=== PATIENT | male | born 1955 | race Caucasian/White ===

== ENCOUNTER 2019-12-06 08:10 | Inpatient (IN) | payer MEDICAID ==
[~2019-12-06] VITALS: Ht 175.3 cm; Wt 82.6 kg
--- NOTE | 2019-12-06 08:17 | NUR ---
THIS IS A 64 YEAR OLD MALE WHO CAME IN BY [facility] FROM [facility] DUE TO WAKING UP AT 0100AM WITH COFFEE GROUND EMESIS, AND RED DIARRHEA. PT WAS GIVEN A UNIT OF RBCS, PROTONIX AND 2 LITERS OF NS. PT PLACED ON WARP SPLITTER SINUS TACHY, CONTINOUS SP02 AND CYCLE VS. PT DENIES ANY PAIN AT THIS TIME
--- NOTE | 2019-12-06 08:18 | NUR ---
dr kong spoke with dr estrada
--- NOTE | 2019-12-06 08:36 | NUR ---
PT STATES HE HAD A BM, NOTIFIED
[2019-12-06 08:47] LABS: BASOPHILS # (AUTO) 0.02 x10^3/uL (0-0.1); BASOPHILS % (AUTO) 0 % (0-1); EOSINOPHILS # (AUTO) 0.01 x10^3/uL (0-0.4); EOSINOPHILS % (AUTO) 0 % (1-7); LYMPHOCYTES # (AUTO) 1.54 x10^3/uL (1-3.4); LYMPHOCYTES % (AUTO) 13 % (22-44); MD NO; MEAN CORPUSCULAR HEMOGLOBIN 32.1 pg (27.5-34.5); MEAN CORPUSCULAR HGB CONC 33.9 g/dL (33.2-36.2); MEAN CORPUSCULAR VOLUME 94.8 fL (81-97); MEAN PLATELET VOLUME 9.6 fL (7.4-10.4); MONOCYTES # (AUTO) 0.46 x10^3/uL (0.2-0.8); MONOCYTES % (AUTO) 4 % (2-9); NEUTROPHILS # (AUTO) 10.12 x10^3/uL (1.8-6.8); NEUTROPHILS % (AUTO) 83 % (42-75); PLATELET COUNT 205 x10^3/uL (130-400); RED CELL DISTRIBUTION WIDTH 13.9 % (9.4-14.8)
--- NOTE | 2019-12-06 08:53 | NUR ---
REPORT TO FADY MICHEL, PLAN OF CARE DISCUSSED.
[2019-12-06 09:01] LABS: ANION GAP 5 mmol/L (5-15); CALCIUM 7.6 mg/dL (8.5-10.1); CHLORIDE 118 mmol/L (98-107); CREATININE 0.74 mg/dL (0.7-1.3)
--- NOTE | 2019-12-06 09:04 | NUR ---
RECEIVED REPORT FROM TAMIA MICHEL. CARE ASSUMED. PT RESTING IN POSITION OF COMFORT. DENIES ANY PAIN AND NEED TO USE RESTROOM. REPORTS "HAVE A BIT OF AN ACID FEELING IN MY STOMACH, MAYBE I CAN GET SOMETHING FOR THAT." TO DISCUSS WITH ERP. CONT PULSE OX, BP, CARDIAC MONITORS IN PLACE. VSS. ST ON MONITOR, RATE 100-110. CALL LIGHT IN REACH. FALL PRECUATIONS IN PLACE. SIDE RAILS UPX2. A&OX4.
--- NOTE | 2019-12-06 09:21 | NUR ---
daughter: shama dillon [phone]
--- NOTE | 2019-12-06 09:23 | NUR ---
DISCUSSED PT REPORT OF "ACID FEELING IN STOMACH" WITH DR. AMADOR, ORDERS RECEIVED TO MEDICATE PER MD/EMAR. GI/MD RESIDENT AT BEDSIDE FOR EVAL.
[2019-12-06] MEDS ORDERED: ONDANSETRON 2MG/ML, 2ML ONE (09:25)
[2019-12-06] MEDS ORDERED: ONDANSETRON 2MG/ML, 2ML IVPush ONE (09:30)
--- NOTE | 2019-12-06 09:44 | NUR ---
PT MEDICATED NOTED PER ORDER FOR NAUSEA AND "ACID FEELING." PT REMAINS NPO PER DR. AMADOR. VSS. RESIDENT GI MD AT BEDSIDE. CALL LIGHT IN REACH. FALL PRECAUTIONS IN PLACE. SIDE RAILS UPX2. RE-POSITIONED FOR COMFORT.
--- NOTE | 2019-12-06 10:06 | NUR ---
PT RESTING COMFORTABLY. DENIES ANY PAIN AND NEED TO RESTROOM. REPORTS NAUSEA IMPROVED AND "ACID FEELING DECREASING." VSS. CALL LIGHT IN REACH. AWAITING ADMIT ORDERS. UPDATED ON POC, AGREES TO POC. FALL PRECAUTIONS IN PLACE
--- NOTE | 2019-12-06 10:15 | NUR ---
ADMITTING PROVIDER DR. NOBLE AT BEDSIDE FOR EVALUATION
[2019-12-06 10:30] LABS: INTERNATIONAL NORMALIZED RATIO 1.01 (0.93-1.1); PROTHROMBIN TIME 10.7 Seconds (9.6-11.5)
[2019-12-06] MEDS ORDERED: hydrALAzine 20 MG/ML, 1ML IVPush PRN (10:30)
[2019-12-06] MEDS ORDERED: ONDANSETRON 2MG/ML, 2ML IVPush PRN (10:30)
--- NOTE | 2019-12-06 10:48 | NUR ---
ANTI-EMBOLISM STOCKING REQUESTED FROM [facility] PER ADMIT MD. DISCUSSED PROTINIX DRIP ORDER AND PROTINIX PT RECEIVED AT ID PRIOR TO ARRIVAL TO ER WITH ADMIT MD DR. NOBLE, AWARE, TO ADMIN PROTINIX ORDERED BY PROVIDER. PROTINIX DRIP REQUESTED FROM PHARMACY.
[2019-12-06] MEDS: PANTOPRAZOLE 80 MG in SODIUM CHLORIDE 0.9% 100 ML IV SCH ×2 (10:53→23:47)
[2019-12-06] MEDS: SODIUM CHLORIDE 0.9% 1,000 ML IV SCH ×2 (10:53→23:48)
[2019-12-06] MEDS ORDERED: FENTANYL PF 100 MCG/2ML ONE (10:53)
[2019-12-06] MEDS ORDERED: MIDAZOLAM 1 MG/ML, 5ML ONE (10:54)
--- NOTE | 2019-12-06 10:57 | NUR ---
GI MD AT BEDSIDE FOR EVALUATION, DISCUSSING POC
--- NOTE | 2019-12-06 11:03 | NUR ---
PROTONIX DRIP INFUSING ON IV PUMP PER ORDER. IVF INFUSING WELL PER EMAR. ENDO TEAM AT BEDSIDE WITH GI MD. VSS. CALL LIGHT IN REACH. DENIES ANY PAIN OR NAUSEA. FALL PRECAUTIONS IN PLACE. PT MEDTELE HOLD AT THIS TIME.
[2019-12-06 11:29] LABS: ALBUMIN 3.2 g/dL (3.4-5.0); BILIRUBIN, DIRECT 0.2 mg/dL (0.1-0.2); BILIRUBIN,INDIRECT 0.4 mg/dL (0.0-2.0); BILIRUBIN,TOTAL 0.6 mg/dL (0.2-1.0); TOTAL PROTEIN 5.6 g/dL (6.4-8.2)
--- NOTE | 2019-12-06 11:42 | NUR ---
RECEIVED BEDSIDE REPORT FROM ENDO RN JAY JAY. PT RESTING IN POSITION OF COMFORT WITH EYES CLOSED. A&OX4. VSS. IVF FLUIDS AND PROTONIX CONT INFUSING PER ORDER ON IV PUMPS. CALL LIGHT IN REACH. AWAITING ROOM ON [facility] FLOOR.
--- NOTE | 2019-12-06 12:25 | NUR ---
PT RESTING COMFORTABLY WITH EYES CLOSED, AROUSES EASILY TO VOICE. VSS. CALL LIGHT IN REACH. FALL PRECAUTIONS IN PLACE. SIDE RAILS UPX2. DENIES ANY PAIN AND NEED TO USE RESTROOM.
--- NOTE | 2019-12-06 13:21 | NUR ---
RESTING IN POSITION OF COMFORT. DENIES ANY PAIN AND NEED TO USE RESTROOM. REMAINS MEDTELE HOLD. VSS. SR ON MONITOR. CALL LIGHT IN REACH. FALL PRECUATIONS IN PLACE. HOSPITAL BED REQUESTED FOR PT FOR COMFORT.
--- NOTE | 2019-12-06 14:06 | NUR ---
[facility] CALLED X2 FOR ANTI-EMBOLISM STOCKINGS, TO SEND. HOSPITAL BED REQUESTED X2. RESTING COMFORTABLY. VSS. DENIES NEED TO USE RESTROOM AND ANY PAIN. CALL LIGHT IN REACH. FALL PRECAUTIONS IN PLACE. CONTINUE AWAITING ROOM ON FLOOR. IVF AND IV PROTONIX CONT INFUSING ON IV PUMPS PER ORDER.
--- NOTE | 2019-12-06 15:36 | NUR ---
[facility] CALLED X3 FOR ANTI-EMBOLISM STOCKING, [employer] AWARE. PT AMBULATED TO RESTROOM WITH STEADY GAIT WITH ASSISTANCE TO VOID, DENIES URGE FOR BM AND ANY DIFFICULTY URINATING. TRANSFERED TO HOSPITAL BED FOR COMFORT. RESTING IN POSITION OF COMFORT. PROVIDED WATER PER DR. AIDE ROMEO, TOLERATING PO WELL. CALL LIGHT IN REACH. FALL PRECAUTIONS IN PLACE. SIDE RAILS UP. A&OX4. VSS. SR ON MONITOR.
--- NOTE | 2019-12-06 15:49 | NUR ---
BEDSIDE REPORT AND TRANSFER OF CARE TO HERBIE RN AT THIS TIME.
--- NOTE | 2019-12-06 21:10 | NUR ---
RN received report and assumed patient care. Patient resting comfortably, has two intravenous fluids running. Sleeping at the moment. Awaiting for medical telemetry bed.
[2019-12-06 22:48] VITALS: BP 115/70
[2019-12-07 02:58] VITALS: BP 109/65
[2019-12-07 05:02] VITALS: BP 107/74
[2019-12-07 06:31] LABS: ALBUMIN 2.8 g/dL (3.4-5.0); ANION GAP 7 mmol/L (5-15); CALCIUM 7.6 mg/dL (8.5-10.1); CHLORIDE 115 mmol/L (98-107)
[2019-12-07 06:35] LABS: ALANINE AMINOTRANSFERASE 18 U/L (12-78); ALKALINE PHOSPHATASE 40 U/L (45-117); BASOPHILS # (AUTO) 0.04 x10^3/uL (0-0.1); BASOPHILS % (AUTO) 1 % (0-1); BILIRUBIN,TOTAL 0.8 mg/dL (0.2-1.0); CREATININE 0.83 mg/dL (0.7-1.3); EOSINOPHILS # (AUTO) 0.15 x10^3/uL (0-0.4); EOSINOPHILS % (AUTO) 3 % (1-7); LYMPHOCYTES # (AUTO) 1.76 x10^3/uL (1-3.4); LYMPHOCYTES % (AUTO) 29 % (22-44); MD NO; MEAN CORPUSCULAR HEMOGLOBIN 32.9 pg (27.5-34.5); MEAN CORPUSCULAR HGB CONC 34.5 g/dL (33.2-36.2); MEAN CORPUSCULAR VOLUME 95.5 fL (81-97); MEAN PLATELET VOLUME 9.6 fL (7.4-10.4); MONOCYTES # (AUTO) 0.33 x10^3/uL (0.2-0.8); MONOCYTES % (AUTO) 6 % (2-9); NEUTROPHILS # (AUTO) 3.77 x10^3/uL (1.8-6.8); NEUTROPHILS % (AUTO) 62 % (42-75); PLATELET COUNT 160 x10^3/uL (130-400); RED BLOOD COUNT 3.23 x10^6/uL (4.38-5.82); RED CELL DISTRIBUTION WIDTH 14.2 % (9.4-14.8)
[2019-12-07 07:08] VITALS: BP 122/73
[2019-12-07] MEDS ORDERED: POTASSIUM PHOSPHATE 44 MEQ in SODIUM CHLORIDE 0.9% 500 ML IV ONE (08:00)
[2019-12-07] MEDS ORDERED: CALCIUM GLUCONATE 4.6 MEQ in SODIUM CHLORIDE 0.9% 100 ML IV ONE (08:00)
[2019-12-07] MEDS ORDERED: MAGNESIUM SULFATE PMX 2GM/50ML 50 ML IV ONE (08:00)
[2019-12-07] MEDS: SODIUM CHLORIDE 0.9% 1,000 ML IV SCH ×2 (09:40→23:15)
[2019-12-07] MEDS: PANTOPRAZOLE 80 MG in SODIUM CHLORIDE 0.9% 100 ML IV SCH ×2 (10:00→18:27)
[2019-12-07 12:56] VITALS: BP 110/70
[2019-12-07] MEDS ORDERED: TETRACYCLINE HCL 250 MG CAPSULE PO SCH (16:00)
[2019-12-07] MEDS ORDERED: TETRACYCLINE HCL 250 MG CAPSULE ONE ×2 (18:23→23:16)
[2019-12-07] MEDS: metroNIDAZOLE 500 MG TABLET PO SCH ×2 (18:27→20:38)
[2019-12-07] MEDS: TETRACYCLINE HCL 250 MG CAPSULE PO SCH ×2 (18:28→23:23)
[2019-12-07 20:28] VITALS: BP 102/63
[2019-12-07] MEDS ORDERED: ARTIFICIAL TEARS 15 DROP/ML BOTTLE EACHEYE PRN (23:30)
[2019-12-08 01:40] VITALS: BP 104/63
[2019-12-08] MEDS ORDERED: TETRACYCLINE HCL 250 MG CAPSULE ONE (04:42)
[2019-12-08] MEDS: PANTOPRAZOLE 80 MG in SODIUM CHLORIDE 0.9% 100 ML IV SCH ×2 (05:15→14:30)
[2019-12-08] MEDS: TETRACYCLINE HCL 250 MG CAPSULE PO SCH ×3 (05:15→16:41)
[2019-12-08 05:59] LABS: BASOPHILS # (AUTO) 0.03 x10^3/uL (0-0.1); BASOPHILS % (AUTO) 1 % (0-1); EOSINOPHILS # (AUTO) 0.23 x10^3/uL (0-0.4); EOSINOPHILS % (AUTO) 4 % (1-7); LYMPHOCYTES # (AUTO) 1.31 x10^3/uL (1-3.4); LYMPHOCYTES % (AUTO) 23 % (22-44); MD NO; MEAN CORPUSCULAR HEMOGLOBIN 32.2 pg (27.5-34.5); MEAN CORPUSCULAR VOLUME 94.7 fL (81-97); MEAN PLATELET VOLUME 9.3 fL (7.4-10.4); MONOCYTES # (AUTO) 0.38 x10^3/uL (0.2-0.8); MONOCYTES % (AUTO) 7 % (2-9); NEUTROPHILS # (AUTO) 3.64 x10^3/uL (1.8-6.8); NEUTROPHILS % (AUTO) 65 % (42-75); PLATELET COUNT 148 x10^3/uL (130-400); RED BLOOD COUNT 3.22 x10^6/uL (4.38-5.82); RED CELL DISTRIBUTION WIDTH 13.8 % (9.4-14.8)
[2019-12-08 06:13] LABS: ANION GAP 6 mmol/L (5-15); CALCIUM 7.7 mg/dL (8.5-10.1); CHLORIDE 116 mmol/L (98-107); CREATININE 0.72 mg/dL (0.7-1.3)
[2019-12-08] MEDS ORDERED: MAGNESIUM SULFATE PMX 2GM/50ML 50 ML IV ONE (07:30)
[2019-12-08 08:11] VITALS: BP 125/77
[2019-12-08] MEDS: metroNIDAZOLE 500 MG TABLET PO SCH ×2 (09:20→16:44)
[2019-12-08] MEDS: SODIUM CHLORIDE 0.9% 1,000 ML IV SCH (09:21)
[2019-12-08] MEDS ORDERED: [UNRECOGNIZED DRUG - CODE] PO (11:34)
[2019-12-08] MEDS ORDERED: OMEP20CA20 PO (11:34)
[2019-12-08] MEDS ORDERED: METR500T PO (11:34)
[2019-12-08] MEDS ORDERED: AMOX-291 PO (11:38)
[2019-12-08 12:05] VITALS: BP 128/70
== END 2019-12-08 18:56 | disposition home or self-care (01) | DRG 241 ==
LOC: SUATTDRO 09:54 → ED 09:54 → EDIP 10:07 → 4WST 22:21
PROVIDERS: ADMIT Internal Medicine; ATTEND Family Medicine
PROC: 0DB68ZX Excision of Stomach, Via Natural or Artificial Opening Endoscopic, Diagnostic (ICD-10-PCS; 2019-12-06)
PROC: 0W3P8ZZ Control Bleeding in Gastrointestinal Tract, Via Natural or Artificial Opening Endoscopic (ICD-10-PCS; principal; 2019-12-06 11:00)
DX: K29.71 Gastritis, unspecified, with bleeding (principal); D62 Acute posthemorrhagic anemia; K26.4 Chronic or unspecified duodenal ulcer with hemorrhage; K22.2 Esophageal obstruction; B96.81 Helicobacter pylori [H. pylori] as the cause of diseases classified elsewhere; K22.6 Gastro-esophageal laceration-hemorrhage syndrome; D72.829 Elevated white blood cell count, unspecified; Z80.1 Family history of malignant neoplasm of trachea, bronchus and lung; Z82.49 Family history of ischemic heart disease and other diseases of the circulatory system; Z87.11 Personal history of peptic ulcer disease
CPT/HCPCS: 36415; 80048; 80053; 80069; 80076; 82962; 83735; 84100; 85014; 85018; 85025; 85610; 88305; 93005; 96374; 99152; 99153; 99285; G0378; J0610; J2250; J2405; J3010; C9113; J3475; J7030; J7040